=== PATIENT | female | born 1975 | race Two or more races ===

== ENCOUNTER 2021-08-18 06:45 | Inpatient (IN) | payer MEDICAID ==
[~2021-08-18] VITALS: Ht 162.6 cm; Wt 90.5 kg
[~2021-08-18 06:45] MED LIST: ETON1IMP SC; FLUO-259 PO; FLUO40CA2 PO; LITH300T5 PO; SULF800T8 PO; [UNRECOGNIZED DRUG - CODE] PO
[2021-08-18] MEDS ORDERED: ceFAZolin 1GM/50ML 100 ML IV ONE (07:44)
[2021-08-18] MEDS ORDERED: fentaNYL CITRATE 100 MCG/2 ML VL ONE (07:56)
[2021-08-18] MEDS ORDERED: MIDAZOLAM HCL 2MG/2ML 2ml VIAL (1mg/ml) ONE (07:56)
[2021-08-18] MEDS ORDERED: PROPOFOL 10 MG/ML 20 ML IV ONE ×2 (07:57→09:34)
[2021-08-18] MEDS ORDERED: DexAMETHasone SOD PHOS 10MG/1ML VIAL INJ ONE (07:57)
[2021-08-18] MEDS ORDERED: SODIUM CHLORIDE LOCK 10 ML ONE (07:57)
[2021-08-18] MEDS ORDERED: ONDANSETRON HCL 4 MG/2 ML VIAL ONE (07:57)
[2021-08-18] MEDS ORDERED: HYDROmorphone HCL 2 MG/ML VL IV PRN (08:45)
[2021-08-18] MEDS ORDERED: METOCLOPRAMIDE HCL 5MG/ml INJ 2ml VIAL IV PRN (08:45)
[2021-08-18] MEDS ORDERED: IPRATROPIUM BROM 0.5 MG/2.5ML INH SOL NEB STA (09:45)
[2021-08-18] MEDS ORDERED: ALBUTEROL SULF 2.5 MG/0.5ML(0.5%) NEB SOLN NEB STA (09:45)
[2021-08-18] MEDS: MORPHINE SULFATE 4 MG/ML SYR/VIAL IV PRN ×4 (12:45→15:32)
[2021-08-18] MEDS ORDERED: ALBUTEROL SULF 2.5 MG/0.5ML(0.5%) NEB SOLN NEB ONE (16:45)
[2021-08-18] MEDS ORDERED: IPRATROPIUM BROM 0.5 MG/2.5ML INH SOL NEB ONE (16:45)
[2021-08-18] MEDS ORDERED: MORPHINE SULFATE INJECTION 2 MG/ML SYRG IV PRN ×2 (18:30→22:15)
[2021-08-18] MEDS ORDERED: NITROGLYCERIN 0.4 MG SL TAB SL PRN (18:30)
[2021-08-18 19:06] LABS: Anion Gap 7 (5-15); Blood Urea Nitrogen 6 mg/dL (7-18); Calcium 8.7 mg/dL (8.5-10.1); Carbon Dioxide 22 mmol/L (21-32); Chloride 114 mmol/L (98-107); GFR African American 122 mL/min; GFR Non-African American 101 mL/min; Glucose 122 mg/dL (74-106); Potassium 4.3 mmol/L (3.5-5.1); Sodium 143 mmol/L (136-145)
[2021-08-18 22:00] VITALS: BP 119/67
[2021-08-18 22:09] LABS: Basophils # (auto) 0 10 ^3/uL (0-0.2); Eosinophils # (auto) 0 10 ^3/uL (0-0.8); Hematocrit 38.6 % (36.0-46.0); Hemoglobin 12.9 g/dL (12.2-16.2); Mean Corpuscular Hemoglobin 33.4 pg (28.0-32.0); Mean Corpuscular Hgb Conc. 33.4 g/dL (32.0-36.0); Monocytes # (auto) 0.3 10 ^3/uL (0-1.3); Neutrophils # (auto) 12.3 10 ^3/uL (1.6-8.6); Red Blood Cells 3.86 10^6/uL (4.0-5.20); Red Cell Distribution Width 13.4 % (11.8-14.3); White Blood Cell 13.5 10^3/uL (4.4-10.8)
[2021-08-18] MEDS: levoFLOXacin 500MG 100 ML IV SCH (22:22)
[2021-08-18] MEDS: HYDROcodone-ACET 5/325MG TAB PO PRN (22:36)
[2021-08-18] MEDS: ALBUTEROL SULF 2.5 MG/0.5ML(0.5%) NEB SOLN NEB SCH (22:48)
[2021-08-18 23:10] VITALS: BP 119/67
[2021-08-19] MEDS: ACETAMINOPHEN 325 MG TAB PO PRN ×3 (02:16→20:10)
[2021-08-19] MEDS: ALBUTEROL SULF 2.5 MG/0.5ML(0.5%) NEB SOLN NEB SCH ×6 (02:41→22:15)
[2021-08-19 05:00] VITALS: BP 105/63
[2021-08-19 09:00] VITALS: BP 143/68
[2021-08-19] MEDS: ENOXAPARIN SOD 40 MG/0.4 ML SYRINGE SC SCH (09:31)
[2021-08-19] MEDS: HYDROcodone-ACET 5/325MG TAB PO PRN (11:59)
[2021-08-19 13:00] VITALS: BP 102/62
[2021-08-19] MEDS: levoFLOXacin 500MG 100 ML IV SCH (18:39)
[2021-08-19] MEDS: SODIUM CHLORIDE 0.9% 1,000 ML IV SCH (20:40)
[2021-08-19] MEDS: METOCLOPRAMIDE HCL 10 MG TAB PO SCH (21:08)
[2021-08-19] MEDS: LITHIUM CARBONATE 300 MG TAB PO SCH (21:08)
[2021-08-19 22:24] VITALS: BP 105/62
[2021-08-20] MEDS: ALBUTEROL SULF 2.5 MG/0.5ML(0.5%) NEB SOLN NEB SCH ×4 (02:20→14:24)
[2021-08-20] MEDS: SODIUM CHLORIDE 0.9% 1,000 ML IV SCH ×2 (03:09→12:15)
[2021-08-20 05:16] VITALS: BP 105/69
[2021-08-20] MEDS: METOCLOPRAMIDE HCL 10 MG TAB PO SCH ×2 (05:55→13:55)
[2021-08-20 08:55] VITALS: BP 110/72
[2021-08-20] MEDS: ENOXAPARIN SOD 40 MG/0.4 ML SYRINGE SC SCH (09:52)
[2021-08-20] MEDS ORDERED: DexAMETHasone INJECTION 10 MG in D5W 5% 50 ML IV SCH (10:00)
[2021-08-20] MEDS ORDERED: FLUoxetine HCL 20 MG CAP PO SCH (10:00)
[2021-08-20] MEDS ORDERED: FLUoxetine HCL 10 MG CAP PO SCH (10:00)
[2021-08-20] MEDS: LITHIUM CARBONATE 300 MG TAB PO SCH (11:30)
[2021-08-20 12:42] VITALS: BP 106/64
[2021-08-20] MEDS ORDERED: LEVO500T31 PO (13:31)
[2021-08-20 14:36] VITALS: BP 106/64
== END 2021-08-20 15:42 | disposition home or self-care (01) | DRG 137 ==
LOC: SUR 06:45 → TELE-CENTR 18:18
PROVIDERS: ADMIT Internal Medicine; ATTEND Urology
PROC: 0TF4XZZ Fragmentation in Left Kidney Pelvis, External Approach (ICD-10-PCS; principal; 2021-08-18 09:00)
PROC: 05HB33Z Insertion of Infusion Device into Right Basilic Vein, Percutaneous Approach (ICD-10-PCS; 2021-08-19)
PROC: B54MZZA Ultrasonography of Right Upper Extremity Veins, Guidance (ICD-10-PCS; 2021-08-19)
DX: J69.0 Pneumonitis due to inhalation of food and vomit (principal); J96.01 Acute respiratory failure with hypoxia; N20.0 Calculus of kidney; G43.109 Migraine with aura, not intractable, without status migrainosus; R13.10 Dysphagia, unspecified; E66.9 Obesity, unspecified; Z20.822 Contact with and (suspected) exposure to COVID-19; F31.9 Bipolar disorder, unspecified; H53.2 Diplopia; Z79.899 Other long term (current) drug therapy; Z83.3 Family history of diabetes mellitus
CPT/HCPCS: 36415; 70450; 71045; 80048; 81025; 84484; 85025; 94640; G0378; J0690; J1100; J1956; J2250; J2405; J2704; J7060

== ENCOUNTER 2021-11-17 09:15 | Day surgery (SDC) | payer MEDICAID ==
[~2021-11-17 09:15] MED LIST changes: +LEVO500T31 PO
[2021-11-17] MEDS ORDERED: ceFAZolin 1GM/50ML 100 ML IV ONE (11:20)
[2021-11-17] MEDS ORDERED: fentaNYL CITRATE 100 MCG/2 ML VL ONE (12:15)
[2021-11-17] MEDS ORDERED: MEPERIDINE HCL (25 MG/ML) 1ML VIAL ONE (12:15)
[2021-11-17] MEDS ORDERED: MIDAZOLAM HCL 2MG/2ML 2ml VIAL (1mg/ml) ONE (12:16)
[2021-11-17] MEDS ORDERED: DexAMETHasone SOD PHOS 10MG/1ML VIAL INJ ONE (12:16)
[2021-11-17] MEDS ORDERED: PROPOFOL 10 MG/ML 20 ML IV ONE (12:16)
[2021-11-17 14:26] VITALS: BP 113/77
== END 2021-11-17 13:46 | disposition home or self-care (01) ==
LOC: SUR 09:15
PROVIDERS: ATTEND Urology
DX: N20.0 Calculus of kidney (principal); E78.5 Hyperlipidemia, unspecified; F31.9 Bipolar disorder, unspecified; I10 Essential (primary) hypertension; E66.9 Obesity, unspecified; Z98.890 Other specified postprocedural states; Z79.899 Other long term (current) drug therapy; Z91.040 Latex allergy status; Z68.34 Body mass index [BMI] 34.0-34.9, adult; Z20.822 Contact with and (suspected) exposure to COVID-19
CPT/HCPCS: 50590; 81025; J0690; J1100; J2175; J2250; J2704; J3010; U0003

== ENCOUNTER 2022-06-29 12:45 | Emergency (ER) | payer MEDICAID, OTHER ==
[~2022-06-29] VITALS: Ht 167.6 cm; Wt 95.0 kg
[2022-06-29 15:10] VITALS: BP 119/82
[2022-06-29] MEDS ORDERED: AMOX-277 PO (16:14)
[2022-06-29] MEDS ORDERED: NEOMYCIN-BACITRACIN-POLYM UNITDOSE PKG TOP OINT TOP ONE (16:15)
[2022-06-29] MEDS ORDERED: TETANUS-DIPTH-ACEL PERTUSSIS 0.5ML SYR Tdap IM ONE (16:15)
[2022-06-29] MEDS ORDERED: cefTRIAXone SOD 1,000 MG VL IM ONE (16:15)
[2022-06-29] MEDS ORDERED: IBUPROFEN 600 MG TAB PO ONE (16:15)
[2022-06-29] MEDS ORDERED: IBUP600T28 PO (16:16)
== END 2022-06-29 17:01 | disposition home or self-care (01) ==
LOC: EDBD 12:45 → ER 12:45
DX: S81.852A Open bite, left lower leg, initial encounter (principal); J45.909 Unspecified asthma, uncomplicated; E78.5 Hyperlipidemia, unspecified; Z79.899 Other long term (current) drug therapy; W54.0XXA Bitten by dog, initial encounter; Y93.89 Activity, other specified; Y92.89 Other specified places as the place of occurrence of the external cause; Y99.8 Other external cause status
CPT/HCPCS: 73590; 90471; 90715; 96372; 99284; J0696

== ENCOUNTER 2023-06-20 13:53 | Emergency (ER) | payer MEDICAID ==
[~2023-06-20] VITALS: Ht 165.1 cm; Wt 71.1 kg
[~2023-06-20 13:53] MED LIST changes: +AMOX875T4 PO; -ETON1IMP SC; +ETON68IM3 SC; +IBUP1TAB5 PO; +SULF1TAB75 PO; -SULF800T8 PO
[2023-06-20 15:30] LABS: Urine Bacteria FEW /hpf (None Seen); Urine Blood Negative /uL (Negative); Urine Clarity Clear (Clear); Urine Color Colorless (Yellow); Urine Hyaline Cast FEW /lpf (0 - 2); Urine Protein, UAD Negative (Negative); Urine Specific Gravity 1.007 (1.001-1.035); Urine Urobilinogen Normal (Negative); Urine WBC 2 /hpf (0 - 5)
[2023-06-20] MEDS: traMADol HCL 50 MG TAB PO ONE (15:59)
[2023-06-20 16:02] VITALS: BP 96/56; PULSE 111; RESP 18; TEMP 97; O2SAT 97
== END 2023-06-20 16:02 | disposition home or self-care (01) ==
LOC: ER 13:53
DX: R10.2 Pelvic and perineal pain (principal); E78.5 Hyperlipidemia, unspecified; Z90.710 Acquired absence of both cervix and uterus; Z79.1 Long term (current) use of non-steroidal anti-inflammatories (NSAID); Z79.2 Long term (current) use of antibiotics; Z79.899 Other long term (current) drug therapy; Z91.048 Other nonmedicinal substance allergy status
CPT/HCPCS: 81001